=== PATIENT | male | born 1985 | race Caucasian/White ===

== ENCOUNTER 2016-11-24 17:54 | Outpatient (CLI) | payer BC ==
[2016-11-24 19:23] LABS: ALT (SGPT) 125 U/L (0-55); AST (SGOT) 61 U/L (5-34); Alkaline Phosphatase 68 U/L (40-150); Anion Gap 15 mmol/L (10-20); BUN (Urea Nitrogen) 17 mg/dL (8.9-20.6); Bilirubin, Direct 0.3 mg/dL (0.1-0.3); Bilirubin, Total 0.9 mg/dL (0.2-1.2); Calc. Creatinine Clearance 0 mL/min (70-130); Calcium 10.1 mg/dL (7.8-10.44); Carbon Dioxide 23 mmol/L (22-29); Chloride 108 mmol/L (98-107); Estimated GFR-MDRD 81; LDL Cholesterol, Calculated 98 mg/dL; Protein, Total 8.4 g/dL (6.0-8.3)
[2016-11-24 20:40] LABS: #Basophils 0.1 thou/uL (0.0-0.2); #Eosinphils 0.2 thou/uL (0.0-0.7); #Monocytes 0.6 thou/uL (0.11-0.59); #Neutrophils 4.3 thou/uL (1.40-6.50); %Basophils 0.8 % (0.0-1.0); %Eosinophils 2.1 % (0.0-10.0); %Lymphocytes 28.2 % (21.0-51.0); %Monocytes 8.3 % (0.0-10.0); Hematocrit 47.5 % (42.0-52.0); Mean Platelet Volume 8.1 fL (7.4-10.4); Red Blood Cell (RBC) Count 5.77 mill/uL (4.70-6.10); White Blood Cell (WBC) Count 7.1 thou/uL (4.8-10.8)
[2016-11-24 20:56] LABS: Hemoglobin A1c 5.3 % (4.0-6.0)
[2016-11-25 18:48] LABS: Sex Hormone Binding Globulin 13.2 nmol/L (11-78); Testosterone, Free 72.7 pg/mL (47-244); Testosterone, Total 258.4 ng/dL (240-871)
== END 2016-11-24 17:55 | disposition home or self-care (01) ==
LOC: NAV LAB 17:54 → NAVSJIPCSP 17:55
PROVIDERS: ATTEND Family Medicine
DX: N52.9 Male erectile dysfunction, unspecified (principal); I10 Essential (primary) hypertension; L40.9 Psoriasis, unspecified; E29.1 Testicular hypofunction; M10.9 Gout, unspecified; Z79.899 Other long term (current) drug therapy
CPT/HCPCS: 80048; 80061; 80076; 83036; 84270; 84403; 84443; 84550; 85025